=== PATIENT | female | born 1995 | race African-American/Black ===

== ENCOUNTER 2020-03-25 18:50 | Inpatient (IN) | payer BC ==
[2020-03-25 20:04] VITALS: BMI 37.3
[2020-03-25] MEDS ORDERED: BUTORPHANOL TARTRATE 2 MG/ML VIAL IVPB PRN (20:12)
[2020-03-25] MEDS ORDERED: DINOPROSTONE 10 MG VAGINAL SUPPOSITORY VG ONE (20:14)
[2020-03-25 21:02] LABS: BASO % 0.2 % (0-2.0); EOS % 0.6 % (0-4.5); HEMATOCRIT 32.5 % (32.4-45.2); LYMPH % 14.8 % (8-40); MCH 29.1 pg (25.7-33.7); MCHC 33.7 g/dl (32.0-36.0); MEAN CELL VOLUME 86.3 fl (80-96); MEAN PLT VOLUME 9.9 fl (7.5-11.1); MONO % 11.9 % (3.8-10.2); NEUT % 72.5 % (42.8-82.8); PLATELET COUNT 265 K/MM3 (134-434); RBC 3.76 M/mm3 (3.60-5.2); RDW 14.9 % (11.6-15.6); RETICULOCYTES 2.66 % (0.5-1.5)
[2020-03-25 21:09] LABS: INR 1.03 (0.83-1.09); PROTHROMBIN TIME (PATIENT) 12.5 SEC (9.7-13.0)
[2020-03-25 21:12] LABS: ACTIVATED PTT 27.3 SECONDS (25.2-36.5)
[2020-03-25 21:17] LABS: PH,URINE 6.5 (5.0-8.0); URINE APPEARANCE CLEAR; URINE BILIRUBIN NEGATIVE (NEGATIVE); URINE COLOR DK YELLOW; URINE GLUCOSE (UA) NEGATIVE (NEGATIVE); URINE KETONE TRACE (NEGATIVE); URINE LEUK ESTERASE NEGATIVE (NEGATIVE); URINE NITRITE NEGATIVE (NEGATIVE); URINE PROTEIN TRACE (NEGATIVE); URINE UROBILINOGEN 0.2 mg/dL (0.2-1.0)
[2020-03-25 21:21] LABS: POTASSIUM 4.2 mmol/L (3.5-5.1)
[2020-03-25 21:23] LABS: BLOOD UREA NITROGEN 11.6 mg/dL (7-18); CALCIUM 9.4 mg/dL (8.5-10.1)
[2020-03-25 21:26] LABS: URIC ACID 4.2 mg/dL (2.6-7.2)
[2020-03-25 21:27] LABS: CREATININE 0.8 mg/dL (0.55-1.3)
[2020-03-25] MEDS: ELECTROLYTE-148 SOLN 1,000 ML IV SCH (22:40)
[2020-03-26] MEDS ORDERED: ACETAMINOPHEN 1000 MG/100 ML VIAL (NON FORMULARY) IVPB ONE ×2 (01:15→23:00)
[2020-03-26] MEDS ORDERED: ACETAMINOPHEN INJECTION 100 ML IVPB ONE ×2 (01:16→23:35)
[2020-03-26] MEDS ORDERED: OXYTOCIN 30 UNITS in 0.9% NS 30 UNIT/500 ML INFUS.BAG IVPB SCH (03:00)
[2020-03-26] MEDS ORDERED: FENTANYL/BUPIVACAINE/NS/PF - PCEA - 50 ML DISP.SYRIN EP ONE ×4 (05:24→17:51)
[2020-03-26] MEDS ORDERED: PCA PUMP NR ONE ×2 (05:25→22:02)
[2020-03-26] MEDS ORDERED: NALOXONE HCL 0.4 MG/ML VIAL IVPUSH PRN (05:39)
[2020-03-26] MEDS ORDERED: BUPIVACAINE HCL/PF 0.25% (2.5MG/ML) 10 ML VIAL ONE ×2 (05:41→16:28)
[2020-03-26] MEDS: FENTANYL/BUPIVACAINE/NS/PF - PCEA - 50 ML DISP.SYRIN EP SCH (05:58)
[2020-03-26] MEDS: ELECTROLYTE-148 SOLN 1,000 ML IV SCH (11:00)
[2020-03-26] MEDS ORDERED: morphine SULFATE/PF 0.5 MG/ML (2cc Syringe - QUVA) ONE (21:31)
[2020-03-26] MEDS ORDERED: KETOROLAC TROMETHAMINE 30 MG/1 ML VIAL ONE (21:37)
[2020-03-26] MEDS ORDERED: ceFAZolin SODIUM 1 GM VIAL ONE (21:37)
[2020-03-26] MEDS ORDERED: SODIUM CHLORIDE 0.9% P/F 10 ML VIAL IJ ONE (21:37)
[2020-03-26] MEDS ORDERED: OXYTOCIN 10 UNITS/ML VIAL ONE ×2 (21:37→22:24)
[2020-03-26] MEDS ORDERED: CITRIC ACID/SODIUM CITRATE 30 ML UNIT-DOSE CUP PO ONE (21:37)
[2020-03-26] MEDS ORDERED: ONDANSETRON 4 MG/2 ML VIAL ONE (21:37)
[2020-03-26] MEDS ORDERED: BENZOCAINE 28 GM HEMORRHOIDAL OINTMENT PR PRN (21:39)
[2020-03-26] MEDS ORDERED: METHYLERGONOVINE MALEATE 0.2 MG/1 ML AMP IM PRN (21:39)
[2020-03-26] MEDS ORDERED: BENZOCAINE 20% 57 GM BOTTLE TP PRN (21:39)
[2020-03-26] MEDS ORDERED: diphenhydrAMINE HCL 25 MG CAPSULE (FP) PO PRN (21:39)
[2020-03-26] MEDS ORDERED: IBUPROFEN 800 MG/8 ML IJ IVPB PRN (21:39)
[2020-03-26] MEDS ORDERED: WITCH HAZEL 50% (TUCKS) 40 PAD/JAR PAD TP PRN (21:39)
[2020-03-26] MEDS ORDERED: OXYTOCIN 20 UNITS in 0.9% NS 20 UNIT/1,000 ML INFUS.BAG IV SCH (21:45)
[2020-03-26] MEDS ORDERED: ONDANSETRON 4 MG/2 ML VIAL IVPUSH PRN (21:48)
[2020-03-26] MEDS ORDERED: LACTATED RINGERS SOLUTION 1,000 ML IV SCH (22:00)
[2020-03-26] MEDS ORDERED: morphine SULFATE/PF 0.5 MG/ML (2cc Syringe - QUVA) EP ONE (22:00)
[2020-03-26 23:37] LABS: CORD BASE EXCESS -5.5 mmol/L (0-2); CORD HCO3 21.3 mmHg (20-29); CORD PCO2 45.8 mmHg (30-78); CORD pH 7.285 (7.14-7.44)
[2020-03-27] MEDS: FENTANYL/BUPIVACAINE/NS/PF - PCEA - 50 ML DISP.SYRIN EP SCH (07:24)
[2020-03-27 08:24] LABS: HEMATOCRIT 30.2 % (32.4-45.2); HEMOGLOBIN 9.9 GM/dL (10.7-15.3); MCHC 32.9 g/dl (32.0-36.0); MEAN CELL VOLUME 88.2 fl (80-96); MEAN PLT VOLUME 9.6 fl (7.5-11.1); PLATELET COUNT 222 K/MM3 (134-434); RBC 3.42 M/mm3 (3.60-5.2); RDW 14.6 % (11.6-15.6); WHITE BLOOD COUNT 17.6 K/mm3 (4.0-10.0)
[2020-03-27] MEDS ORDERED: oxyCODONE HCL 5 MG TABLET PO PRN ×2 (21:39)
[2020-03-27] MEDS ORDERED: BISACODYL 10 MG SUPP.RECT PR PRN (21:39)
[2020-03-27] MEDS ORDERED: HYDROmorphone HCL 2 MG TABLET PO PRN (21:39)
[2020-03-28] MEDS: ACETAMINOPHEN 325 MG TABLET (FP) PO PRN ×2 (04:54→17:29)
[2020-03-28] MEDS: IBUPROFEN 600 MG TABLET (FP) PO PRN ×2 (04:56→17:29)
[2020-03-28] MEDS: SIMETHICONE 80 MG TAB.CHEW (FP) PO PRN ×2 (04:56→17:29)
[2020-03-28] MEDS ORDERED: SENNOSIDES/DOCUSATE COMBO (SENNA PLUS) TABLET (UD) PO PRN (22:00)
[2020-03-29 09:39] LABS: HEMATOCRIT 30.5 % (32.4-45.2); HEMOGLOBIN 10.4 GM/dL (10.7-15.3); MCH 29.6 pg (25.7-33.7); MEAN PLT VOLUME 9.2 fl (7.5-11.1); PLATELET COUNT 292 K/MM3 (134-434); RBC 3.51 M/mm3 (3.60-5.2); RDW 14.8 % (11.6-15.6); WHITE BLOOD COUNT 12.6 K/mm3 (4.0-10.0)
[2020-03-29] MEDS: SIMETHICONE 80 MG TAB.CHEW (FP) PO PRN (10:23)
[2020-03-29] MEDS: IBUPROFEN 600 MG TABLET (FP) PO PRN (10:23)
[2020-03-29] MEDS: ACETAMINOPHEN 325 MG TABLET (FP) PO PRN (10:24)
[2020-03-29 16:45] VITALS: BP 133/79; PULSE 73; TEMP 97.7
== END 2020-03-29 14:55 | disposition home or self-care (01) | DRG 788 ==
LOC: JLDR 18:50 → J3W 03-27 00:50
PROVIDERS: ADMIT Obstetrics & Gynecology; ATTEND Obstetrics & Gynecology
PROC: 3E0P7VZ Introduction of Hormone into Female Reproductive, Via Natural or Artificial Opening (ICD-10-PCS; 2020-03-25)
PROC: 10D00Z1 Extraction of Products of Conception, Low, Open Approach (ICD-10-PCS; principal; 2020-03-26)
DX: O48.0 Post-term pregnancy (principal); O61.0 Failed medical induction of labor; O66.40 Failed trial of labor, unspecified; O99.214 Obesity complicating childbirth; E66.9 Obesity, unspecified; Z3A.41 41 weeks gestation of pregnancy; Z37.0 Single live birth; Z88.0 Allergy status to penicillin; Z88.1 Allergy status to other antibiotic agents
CPT/HCPCS: 36415; 36600; 80048; 81003; 82803; 82977; 83010; 84450; 84460; 84550; 85025; 85027; 85045; 85610; 85730; 86780; 86850; 86900; 86901; 87389; J0131